=== PATIENT | female | born 1955 | race Caucasian/White ===

== ENCOUNTER → 2017-11-15 14:06 | Outpatient (CLI) | payer OTHER, SELFPAY ==
--- NOTE | 2017-11-15 14:10 | MRI_ITS ---
STUDY: MRI BRAIN WITH AND WITHOUT CONTRAST REASON FOR EXAM: Female, 62 years old. Confusion, dizziness and double vision TECHNIQUE: Standardized multiplanar fat and water weighted pulse sequences were obtained. 6 ml of Gadavist contrast material was administered intravenously for the contrast portion of the examination. COMPARISON: None. FINDINGS: Normal size of the ventricles and extra-axial spaces for the patient's age. There are a limited number of small white matter hyperintensities, distributed throughout the deep white matter tracts of the cerebral hemispheres, consistent with mild chronic white matter ischemic changes. There is no evidence for recent intracranial ischemia or other cause of cytotoxic edema on diffusion weighted imaging (DWI). Normal bilateral basal ganglia. Normal thalami. There is no extra-axial fluid accumulation. Normal flow voids within the major intracranial circulation suggesting patency by spin echo criteria. Normal venous enhancement. There is no enhancing intra-axial or extra-axial abnormality. Normal sella turcica, pituitary gland, infundibular stalk, optic chiasm and hypothalamus. Normal tectal plate and pineal gland. Normal midbrain, teja and medulla. Normal cerebellum. Normal basal cisterns. Normal bilateral temporal bones. Normal bilateral internal auditory canals. No demonstrated orbital abnormality, within the constraints of a routine brain study. Normal visualized paranasal sinuses. Normal calvarium and skull base. Normal visualized soft tissue structures. Normal visualized upper cervical spine. MRI/Brain W/WO Contrast IMPRESSION: Normal unenhanced and enhanced MRI of the brain. Electronically Signed: Duglas Alexandre MD at 21:29 EDT , Service support ,
[2017-11-15 15:01] LABS: CREATININE FINGERSTICK 0.7 mg/dL (0.55-1.02); EGFR FINGERSTICK > 60.0000 mL/min (>60)
== END ==
PROVIDERS: Family Provider Internal Medicine; PCP Internal Medicine; Visit Provider Internal Medicine
DX: R41.0 Disorientation, unspecified (principal)
CPT/HCPCS: 70553; A9585

== ENCOUNTER → 2017-11-20 16:00 | Outpatient (CLI) | payer OTHER, SELFPAY ==
--- NOTE | 2017-11-20 16:03 | CT_ITS ---
STUDY: CT ABDOMEN AND PELVIS WITH CONTRAST REASON FOR EXAM: Female, 62 years old. Right lower quadrant pain. RADIATION DOSAGE (If Supplied By Facility): CTDIvol = ( 11.60 ) mGy, DLP = ( 495.26 ) mGycm TECHNIQUE: Transaxial images were obtained from the dome of the diaphragm to the symphysis pubis without oral contrast. 75 ml of Isovue 300 contrast was administered. Sagittal and coronal images were reconstructed. Individualized dose optimization techniques were used for this CT. COMPARISON: November 08, 2016 FINDINGS: The visualized lung bases are unremarkable. Pacemaker wires in the heart. There is stable 1.5 cm peripherally enhancing mass in the right lobe the liver suggesting hemangioma. Normal gallbladder and extrahepatic biliary system. Normal spleen. Normal pancreas. Normal bilateral adrenal glands. Normal right kidney. Normal left kidney. Normal visualized stomach. Normal small intestine. Normal colon. There is moderately abundant stool There are surgical clips in the region of the appendix consistent with a prior appendectomy. Normal abdominal aorta. Normal inferior vena cava. Normal retroperitoneum. Normal urinary bladder. Uterus is lobular with suggestion of fibroids. There is no free fluid in the abdomen or pelvis. There are postoperative changes of the abdominal wall. Degenerative changes of the spine. CT/Abdomen/Pelvis WITH Contrast IMPRESSION: No obstruction. Moderately abundant stool. Fibroid uterus. No hydronephrosis. Electronically Signed: Nils Bender MD at 17:50 EDT , Service support ,
[2017-11-20 16:36] LABS: CREATININE FINGERSTICK < 0.6 mg/dL (0.55-1.02)
== END ==
PROVIDERS: Family Provider Internal Medicine; PCP Internal Medicine; Visit Provider Internal Medicine
DX: R10.31 Right lower quadrant pain (principal)
CPT/HCPCS: 74177; Q9967

== ENCOUNTER → 2017-11-25 08:00 | Outpatient (CLI) | payer OTHER, SELFPAY ==
--- NOTE | 2017-11-25 08:00 | CYST_PTH ---
PATIENT: LUIS BHAGAT LOC: [facility] U#:[id number] AGE/SX: 70/F ROOM: RE11/25/[address]: Dr. Sebastien Anders MD : [id number] BED: DIS: SPEC #: [id number] RECD: 11/25/17 11:45 STATUS: MANDI NATTY #: [id number] LAURENT: 11/25/17 08:[address]: Sebastien Anders DEPT: SURGICAL PATHOLOGY RECD BY: Arthur Lentz ENTERED: 11/27/17 09:02 SP TYPE: Cyst OTHR DR: Dr. Zayda Robles, DO Tissues: CYST Procedures: Surgery Specimen Level III HEADER OPERATION: Excision of right shoulder cyst PRE-OP DIAGNOSIS: Subcutaneous mass, L98.9 TISSUE SUBMITTED: Right shoulder subcutaneous mass MICROSCOPIC DIAGNOSIS Right shoulder subcutaneous mass, excision: Trichilemmal cyst with focal calcifications. SJ:felix 8/7/18 MICROSCOPIC DESCRIPTION Slides are reviewed. GROSS DESCRIPTION Received in fixative is one container labeled with the patient's name and designated right shoulder cyst. The specimen consists of an ovoid fragment of swann-white soft tissue measuring 1.6 x 1.2 x 1 cm. The specimen is sectioned to reveal a yellow cut surface that is somewhat granular. The specimen is sectioned and totally submitted in one cassette. / AM:felix 11/27/17 TC:5 CPT: 02401
== END ==
PROVIDERS: Family Provider Internal Medicine; PCP Internal Medicine; Visit Provider Surgery
DX: L72.12 Trichodermal cyst (principal)
CPT/HCPCS: 88304

== ENCOUNTER → 2018-07-26 14:27 | Outpatient (CLI) | payer OTHER, SELFPAY ==
--- NOTE | 2018-07-26 14:32 | BI_ITS ---
MAMMOGRAPHY - BILATERAL SCREENING REASON FOR EXAM: Female, 63 years old. Routine annual screening examination. PERTINENT HISTORY: Non-contributory. TECHNIQUE: Digital bilateral breast xiomy (3D mammographic acquisition) in the CC and MLO projections. 2-D mediolateral oblique (MLO) and craniocaudad (CC) views of both breasts were obtained. CAD: Full Field Digital Mammography with Computer Added Detection was performed. COMPARISON: Comparison is made with prior study dated November 03, 2015 and December 03, 2008. FINDINGS: Breast Composition: The breasts are heterogeneously dense, which may obscure small masses. There are no dominant masses or suspicious calcifications. No other significant abnormalities are identified. There has been no significant change since the prior study. BI/SCREENING MAMM (CAD), BILAT IMPRESSION: Stable bilateral screening mammogram. Yearly follow-up mammogram recommended. (A) ASSESSMENT CATEGORY: BIRADS Category 1: Negative. A letter regarding these results will be sent to the patient by the facility within 30 days. Approximately 10% of breast cancers are not detected by mammography. A normal mammogram should not delay biopsy of a clinically suspicious abnormality. [id number] Electronically Signed: Junior Egan, at 15:56 EDT , Service support ,
--- NOTE | 2018-07-26 14:34 | BD_ITS ---
STUDY: DUAL ENERGY X-RAY ABSORPTIOMETRY / DXA REASON FOR EXAM: Female, 63 years old. The patient is postmenopausal. Loss of height. TECHNIQUE: Bone Mineral Density (BMD) measurements of lumbar spine and bilateral hips were obtained. COMPARISON: Comparison is made with prior study dated November 03, 2015. FINDINGS: Lumbar Spine (L1-L4): g/cm2 (0.918) / T-score (-2.4) / Z-score (-1.0) Findings are suggestive of osteopenia with a high fracture risk. Left Femur Total: g/cm2 (0.826) / T-score (-1.4) / Z-score (-0.4) Left Femoral Neck: g/cm2 (0.871) / T-score (-1.2) / Z-score (0.1) Right Femur Total: g/cm2 (0.848) / T-score (-1.3) / Z-score (-0.2) Right Femoral Neck: g/cm2 (0.901) / T-score (-1.0) / Z-score (0.4) The T-Scores on the most recent prior examination were: Lumbar Spine (L1-L4): There has been worsening of bone density since the previous examination. Left Femur Total: which represents a worsening of 0.2%. Right Femur Total: which represents a worsening of 2.9%. BD/Dexa Bone Density Study IMPRESSION: The patient is considered osteopenic as outlined below according to World Larry Organization (WHO) criteria with a high fracture risk. There has been worsening of bone density since the previous examination. Reference Information: The T-score is the number of standard deviations above or below the standard which is normal for young adults at their peak bone mineral density. The World Health Organization (WHO) interprets the T-scores as follows: Above -1 Normal bone density Between -1 and -2.5 Osteopenia Equal to / or below -2.5 Osteoporosis As a practical clinical guideline, osteopenia may be graded as follows: Mild -1 through -1.5 Moderate -1.6 through -2.0 Severe -2.1 through -2.4 The Z-score is the number of standard deviations above or below age-matched controls. A Z-score of less than -1.5 would be considered abnormal. References: 1. NIH Osteoporosis and Related Bone Diseases http://www.osteo.org 2. International Society for Clinical Densitometry http://www.iscd.org 3. National Osteoporosis Foundation http://www.nof.org Electronically Signed: Junior Egan, at 15:02 EDT , Service support ,
== END ==
PROVIDERS: Family Provider Internal Medicine; PCP Internal Medicine; Referring Provider Internal Medicine; Visit Provider Internal Medicine
DX: Z12.31 Encounter for screening mammogram for malignant neoplasm of breast (principal); Z78.0 Asymptomatic menopausal state
CPT/HCPCS: 77063; 77067; 77080

== ENCOUNTER → 2018-10-24 09:26 | Outpatient (CLI) | payer OTHER, SELFPAY ==
--- NOTE | 2018-10-24 09:29 | CT_ITS ---
STUDY: CT ABDOMEN AND PELVIS WITHOUT CONTRAST REASON FOR EXAM: Female, 63 years old. Right flank pain. RADIATION DOSAGE (If Supplied By Facility): CTDIvol = ( 6.43 ) mGy, DLP = ( 324.56 ) mGycm TECHNIQUE: Transaxial images were obtained from the dome of the diaphragm to the symphysis pubis without oral contrast, and without intravenous contrast. Sagittal and coronal images were reconstructed. Individualized dose optimization techniques were used for this CT. COMPARISON: Comparison is made with prior study dated November 20, 2017. FINDINGS: Minimal degree of increased markings at the right lung base suggestive of atelectasis. There is evidence of prior aortic valve replacement. A dual chamber pacemaker is seen. Normal liver. Normal gallbladder and extrahepatic biliary system. Normal spleen. Normal pancreas. Normal bilateral adrenal glands. Normal right kidney. Normal left kidney. Mild fullness of the renal pelvis bilaterally. Normal visualized stomach. Normal small intestine. Normal colon. There are surgical clips in the region of the appendix consistent with a prior appendectomy. Normal abdominal aorta. Normal inferior vena cava. Normal retroperitoneum. Normal urinary bladder. Surgical clips are seen in the right groin. There are mild degenerative changes of the visualized lumbar spine. CT/Abdomen/Pelvis without Cont IMPRESSION: Stable examination. Status post appendectomy. Electronically Signed: Junior Egan, at 10:21 EDT , Service support ,
== END ==
PROVIDERS: Family Provider Internal Medicine; PCP Internal Medicine; Referring Provider Internal Medicine; Visit Provider Internal Medicine
DX: R10.9 Unspecified abdominal pain (principal)
CPT/HCPCS: 74176

== ENCOUNTER → 2018-10-26 10:35 | Outpatient (CLI) | payer OTHER, SELFPAY ==
--- NOTE | 2018-10-26 10:52 | RAD_ITS ---
STUDY: X-RAY - LUMBAR SPINE REASON FOR EXAM: Female, 63 years old. 4 day history of back pain. TECHNIQUE: 5 view(s) of the lumbar spine were obtained including oblique views. COMPARISON: None FINDINGS: Normal lumbar lordosis. There is no substantial scoliosis. There is a normal alignment of the vertebrae. There is multilevel endplate spondylosis of the lumbar vertebrae. There is multi-level degenerative disc disease with multi-level disc space narrowing. The soft tissue structures are unremarkable. RAD/L/S Spine Min 4 Views IMPRESSION: Degenerative changes of the spine, as detailed above. Electronically Signed: Junior Egan, at 11:46 EDT , Service support ,
--- NOTE | 2018-10-26 10:52 | RAD_ITS ---
STUDY: X-RAY - PELVIS AND RIGHT HIP REASON FOR EXAM: Female, 63 years old. 4 day history of low back pain. TECHNIQUE: 3 views of the pelvis and hip. COMPARISON: None. FINDINGS: There is a non-specific bowel gas pattern. Normal visualized soft tissue structures. Normal bilateral iliac wings, sacroiliac joints and visualized sacrum. Normal bilateral superior and inferior pubic rami. Normal pubic symphysis. Normal bilateral ischial tuberosities. Normal visualized femoral head. Normal acetabulum. Normal hip joint. RAD/HIP, UNI W/ Pelvis 2-3 Views IMPRESSION: Normal x-ray examination of the pelvis and hip. Electronically Signed: Junior Egan, at 11:14 EDT , Service support ,
--- NOTE | 2018-10-26 13:36 | RAD_ITS ---
STUDY: X-RAY - THORACIC SPINE REASON FOR EXAM: Female, 63 years old. Back pain. TECHNIQUE: AP and lateral view(s) of the thoracic spine were obtained. COMPARISON: None. FINDINGS: Normal kyphosis of the thoracic spine. There is no substantial scoliosis. There is demineralization of the thoracic spine with endplate spondylosis. There is multilevel disc space narrowing of the thoracic spine. A left-sided dual-chamber pacemaker is seen. Prosthetic valves. The soft tissue structures are unremarkable. RAD/Thoracic Spine 2 Views IMPRESSION: Multilevel disc space narrowing and spondylosis. Electronically Signed: Junior Egan, at 14:30 EDT , Service support ,
== END ==
PROVIDERS: Family Provider Internal Medicine; PCP Internal Medicine; Referring Provider Internal Medicine; Visit Provider Internal Medicine
DX: M54.6 Pain in thoracic spine (principal); M47.819 Spondylosis without myelopathy or radiculopathy, site unspecified
CPT/HCPCS: 72070; 72110; 73502

== ENCOUNTER → 2018-11-05 | Outpatient (CLI) | payer OTHER, SELFPAY ==
--- NOTE | 2018-11-05 09:43 | MRI_ITS ---
STUDY: MRI THORACIC SPINE WITHOUT CONTRAST REASON FOR EXAM: Female, 63 years old. Back pain, numbness TECHNIQUE: Standardized fat and water weighted pulse sequences were obtained in the sagittal and axial planes. COMPARISON: None. FINDINGS: Normal kyphosis of the thoracic spine. There is no substantial scoliosis. T1-2, T2-3, T3-4, T4-5, T5-6, T6-7, T7-8, T8-9, T9-10, T10-11, T11-12: Normal endplates. Normal disc hydration, heights and morphology of the corresponding intervertebral discs. Normal central canal and intervertebral neural foramina at the corresponding levels. Normal visualized thoracic cord. Normal conus medullaris that terminates at the . The soft tissue structures are unremarkable. MRI/Spine Thoracic (Routine) IMPRESSION: Normal unenhanced MRI examination of the thoracic spine. Electronically Signed: Glen Foster MD at 17:14 EDT Tel , Service support ,
--- NOTE | 2018-11-05 13:00 | MRI_ITS ---
STUDY: MRI LUMBAR SPINE WITHOUT CONTRAST REASON FOR EXAM: Female, 63 years old. Back pain TECHNIQUE: Standardized fat and water weighted pulse sequences were obtained in the sagittal and axial planes. COMPARISON: None FINDINGS: Lumbar spine is intact and aligned. Marrow is normal with scattered hemangiomata and mild osteopenic conversion change. L5-S1 has a small focal central disc protrusion without neural compression. Paraspinous soft tissues are intact. SI joints are not imaged sufficiently for assessment. Conus medullaris terminates at L1-L2 with normal cauda equina. Spinal canal is widely patent. There is no moderate or severe foraminal stenosis. MRI/Spine Lumbar (Routine) IMPRESSION: 1. Widely patent canal, no neural compression. 2. Age-related changes. Electronically Signed: Jacky Jacobs, at 17:52 EDT Tel , Service support ,
== END | disposition home or self-care (01) ==
PROVIDERS: Family Provider Internal Medicine; PCP Internal Medicine; Referring Provider Internal Medicine; Visit Provider Internal Medicine
DX: M54.6 Pain in thoracic spine (principal)
CPT/HCPCS: 72146; 72148

== ENCOUNTER → 2018-11-09 | Outpatient (CLI) | payer OTHER, SELFPAY ==
--- NOTE | 2018-11-09 16:20 | US_ITS ---
STUDY: ULTRASOUND OF THE FEMALE PELVIS - COMPLETE REASON FOR EXAM: Female, 63 years old. Pain TECHNIQUE: Transabdominal and transvaginal ultrasound images were obtained of the pelvis. TECHNICAL QUALITY: Limited. COMPARISON: None. FINDINGS: The uterus measures 7 x 4.8 x 3.9 cm. Normal uterine cervix. The endometrium measures 2 mm in thickness. Mild fluid is present within the endometrial cavity. There is a 2 cm fibroid and a 1.7 cm fibroid. The right ovary is not visualized. The left ovary is not visualized. There is no fluid in the cul-de-sac. US/Transvaginal Non- IMPRESSION: No acute pelvic pathology identified. Uterine fibroids. Mild fluid within the endometrial cavity. Electronically Signed: Erwni Fowler, at 20:43 EDT Tel , Service support ,
== END | disposition home or self-care (01) ==
LOC: US 16:16
PROVIDERS: Family Provider Internal Medicine; PCP Internal Medicine; Referring Provider Internal Medicine; Visit Provider Internal Medicine
DX: R10.31 Right lower quadrant pain (principal)
CPT/HCPCS: 76830

== ENCOUNTER → 2018-11-22 | Outpatient (CLI) | payer OTHER, SELFPAY ==
[2018-11-22 14:01] VITALS: BMI 22.7
[2018-11-27 16:30] LABS: HPV APTIMA, High Risk Negative (Negative)
== END | disposition home or self-care (01) ==
PROVIDERS: Family Provider Internal Medicine; PCP Internal Medicine; Referring Provider Internal Medicine; Visit Provider Internal Medicine
DX: Z12.4 Encounter for screening for malignant neoplasm of cervix (principal)
CPT/HCPCS: 87624; 88175; G0145

== ENCOUNTER → 2020-07-30 14:07 | Outpatient (CLI) | payer OTHER, SELFPAY ==
[2018-11-22 14:01] VITALS: BMI 22.7
--- NOTE | 2020-07-30 14:12 | BD_ITS ---
STUDY: DUAL ENERGY X-RAY ABSORPTIOMETRY / DXA REASON FOR EXAM: Female, 65 years old. [id number]. The patient is postmenopausal. TECHNIQUE: Bone Mineral Density (BMD) measurements of lumbar spine and bilateral hips were obtained. COMPARISON: Comparison is made with prior study dated 11/03/2015. FINDINGS: Lumbar Spine (L1-L4): g/cm2 (0.969) / T-score (-1.8) / Z-score (-0.2) Findings are suggestive of osteopenia with a moderate fracture risk. Left Femur Total: g/cm2 (0.772) / T-score (-1.9) / Z-score (-0.7) Left Femoral Neck: g/cm2 (0.825) / T-score (-1.5) / Z-score (-0.1) Right Femur Total: g/cm2 (0.795) / T-score (-1.7) / Z-score (-0.5) Right Femoral Neck: g/cm2 (0.840) / T-score (-1.4) / Z-score (0.0) The T-Scores on the most recent prior examination were: Lumbar Spine (L1-L4): There has been worsening of bone density since the previous examination. Left Femur Total: which represents a worsening of 6.5%. Right Femur Total: which represents a worsening of 6.3%. BD/Dexa Bone Density Study IMPRESSION: The patient is considered osteopenic as outlined below according to World Larry Organization (WHO) criteria with a moderate fracture risk. There has been worsening of bone density since the previous examination. Reference Information: The T-score is the number of standard deviations above or below the standard which is normal for young adults at their peak bone mineral density. The World Health Organization (WHO) interprets the T-scores as follows: Above -1 Normal bone density Between -1 and -2.5 Osteopenia Equal to / or below -2.5 Osteoporosis As a practical clinical guideline, osteopenia may be graded as follows: Mild -1 through -1.5 Moderate -1.6 through -2.0 Severe -2.1 through -2.4 The Z-score is the number of standard deviations above or below age-matched controls. A Z-score of less than -1.5 would be considered abnormal. References: 1. NIH Osteoporosis and Related Bone Diseases www osteo.org 2. International Society for Clinical Densitometry www iscd.org 3. National Osteoporosis Foundation www nof.org Electronically Signed: Junior Egan MD at 12:26 EDT , Service support ,
== END ==
PROVIDERS: PCP Internal Medicine; Referring Provider Internal Medicine; Visit Provider Internal Medicine
DX: Z78.0 Asymptomatic menopausal state (principal)
CPT/HCPCS: 77080

== ENCOUNTER → 2020-12-22 10:45 | Outpatient (CLI) | payer OTHER, SELFPAY ==
[2018-11-22 14:01] VITALS: BMI 22.7
--- NOTE | 2020-12-22 10:47 | BI_ITS ---
MAMMOGRAPHY - BILATERAL SCREENING 3-D TOMOSYNTHESIS REASON FOR EXAM: Female, 65 years old. SCREENING PERTINENT HISTORY: No significant family history. TECHNIQUE: 2-D mammograms and 3-D Tomosynthesis of the breast (s) were performed. CAD was performed. COMPARISON: 07/26/2018 FINDINGS: The breast composition is heterogeneously dense that can obscure small breast masses. Scattered benign calcifications are seen. No dense spiculated masses or suspicious microcalcifications are identified. No architectural distortion is identified. There is no skin thickening or retraction. There has been no significant change since the prior study. BI/SCRN MAMM (CAD)W/ANGELICA BILAT IMPRESSION: No mammographic signs of malignancy. Routine yearly mammograms recommended. ASSESSMENT CATEGORY: BIRADS Category 1: Negative. A letter regarding these results will be sent to the patient by the facility within 30 days. FOLLOW UP RECOMMENDATION: Yearly follow up mammogram recommended. (A) Approximately 10% of breast cancers are not detected by mammography. A normal mammogram should not delay biopsy of a clinically suspicious abnormality. Electronically Signed: Glen Foster MD at 17:10 EDT Tel , Service support ,
== END ==
PROVIDERS: PCP Internal Medicine; Referring Provider Internal Medicine; Visit Provider Internal Medicine
DX: Z12.31 Encounter for screening mammogram for malignant neoplasm of breast (principal)
CPT/HCPCS: 77063; 77067

== ENCOUNTER → 2021-12-23 | Outpatient (CLI) | payer BC, SELFPAY ==
--- NOTE | 2021-12-23 12:05 | BI_ITS ---
MAMMOGRAPHY - BILATERAL SCREENING REASON FOR EXAM: Female, 66 years old. Routine annual screening examination. PERTINENT HISTORY: Non-contributory. TECHNIQUE: Digital bilateral breast angelica (3D mammographic acquisition) in the CC and MLO projections. 2-D mediolateral oblique (MLO) and craniocaudad (CC) views of both breasts were obtained. CAD: Full Field Digital Mammography with Computer Added Detection was performed. COMPARISON: Comparison is made with prior study dated 12/22/2020 and 07/26/2018. FINDINGS: Breast Composition: The breasts are heterogeneously dense, which may obscure small masses. There are no dominant masses or suspicious calcifications. No other significant abnormalities are identified. There has been no significant change since the prior study. BI/SCRN MAMM (CAD)W/ANGELICA BILAT IMPRESSION: Stable bilateral screening mammogram. Yearly follow-up mammogram recommended. (A) ASSESSMENT CATEGORY: BIRADS Category 1: Negative. A letter regarding these results will be sent to the patient by the facility within 30 days. Approximately 10% of breast cancers are not detected by mammography. A normal mammogram should not delay biopsy of a clinically suspicious abnormality. [id number] Electronically Signed: Junior Egan MD at 12:48 EDT ,
== END | disposition home or self-care (01) ==
LOC: OPBI 12:04
PROVIDERS: PCP Student in an Organized Health Care Education/Training Program; Referring Provider Student in an Organized Health Care Education/Training Program; Visit Provider Student in an Organized Health Care Education/Training Program
DX: Z12.31 Encounter for screening mammogram for malignant neoplasm of breast (principal)
CPT/HCPCS: 77063; 77067

== ENCOUNTER 2022-10-14 10:45 | Emergency (ER) | payer BC, SELFPAY ==
[2022-10-14 10:46] VITALS: TEMP 36.9; BMI 23.3
[2022-10-14 10:51] VITALS: BP 153/83; PULSE 76; RESP 18; O2SAT 100
--- NOTE | 2022-10-14 11:12 | EDS_ITS ---
HPI <CIRO Joya - Last Filed: 10/14/22 15:24> History of Present Illness Chief Complaint: Chest Pain Narrative Narrative: Patient presenting to ED with left-sided constant chest pain that she describes as nonradiating, squeezing, and aching that started at 6:30 AM this morning. She went on a long walk this morning, around 2 miles that did not seem to worsen the pain. She reports that she walks daily and has a history of costochondritis. She also has a history of aortic valve replacement and cardiac pacemaker placement. Her last stress test was in 2019. She reports feeling slightly short of breath. She denies any fever, chills, abdominal pain, nausea, vomiting. She denies any history of blood clots, recent surgery/procedures, recent travel, recent immobilization. PFSH <CIRO Joya - Last Filed: 10/14/22 15:24> PFSH Medical History Aortic stenosis Aortic valve disease Appendicitis Atypical nevus Cyst Hemorrhoids Hyperlipemia Lymphadenopathy Osteopenia Pacemaker Papillary fibroelastoma Psoriasis Syncope Home Medications NK 10/14/22 [History Last Taken Unknown] Allergy/AdvReac Type Severity Reaction Status Date / Time No Known Allergies Allergy Verified 10/14/22 10:46 Family History Grandmother Paget's disease Heart disease Surgical History Hx of aortic valve repair Hx of appendectomy Status post cardiac pacemaker procedure Social History Smoking Status: Never smoker second hand exposure: No alcohol intake: never substance use type: does not use caffeine: No what type of physical activity do you participate in: walking and running frequency: 5-6 times per week seatbelt use: always do you feel safe at home: Yes additional social history: ROS <CIRO Joya - Last Filed: 10/14/22 15:24> ROS ED Constitutional Constitutional ED: Denies chills or fever(s) Cardiovascular Cardiovascular: Reports chest pain; Denies palpitations Respiratory/Chest Respiratory/Chest: Reports dyspnea on exertion; Denies cough or dyspnea Gastrointestinal Gastrointestinal: Denies abdominal pain, nausea or vomiting Musculoskeletal Musculoskeletal: Denies arthralgias or myalgias Integumentary Denies rash Neurologic Neurologic: Denies paresthesias or weakness EXAM <CIRO Joya - Last Filed: 10/14/22 15:24> Physical Exam Const Vital Signs: 10/14/22 10:46 10/14/22 10:51 10/14/22 12:00 Temperature 98.4 F Temperature Source Temporal Pulse Rate 76 63 Respiratory Rate 18 18 Blood Pressure 153/83 H 148/82 H Blood Pressure Mean 106 104 Pulse Ox 100 99 Oxygen Delivery Method Room Air Room Air Positive well nourished, well developed and no apparent distress General Appearance ED: well developed HEENT Reports normocephalic and head/scalp atraumatic Mouth ED: Yes moist mucous membranes normal Eyes PERRL and EOMs intact bilaterally Neck full ROM and supple Chest Wall inspection of chest normal Chest Narrative: Left-sided chest tenderness to palpation. Resp normal respiratory effort and clear to auscultation bilaterally Cardio regular rate and regular rhythm GI soft to palpation, non-tender, non-distended and no masses Back/Spine normal ROM and normal to inspection Extremity normal to inspection and full ROM Neuro oriented x3, CN's II-XII intact bilaterally, moves all extremities, no focal motor deficits and no sensory deficits noted Sensorium / Orientation: awake and alert Motor Exam: strength 5/5 throughout Psych mental status grossly normal and thought process normal Skin no rashes or lesions noted and no wounds <Jb Booth MD - Last Filed: 10/14/22 15:50> Physical Exam Const Vital Signs: 10/14/22 10:46 10/14/22 10:51 10/14/22 12:00 Temperature 98.4 F Temperature Source Temporal Pulse Rate 76 63 Respiratory Rate 18 18 Blood Pressure 153/83 H 148/82 H Blood Pressure Mean 106 104 Pulse Ox 100 99 Oxygen Delivery Method Room Air Room Air MDM <CIRO Joya - Last Filed: 10/14/22 15:24> [facility] MDM Narrative Medical decision making narrative: Patient presenting with left-sided chest pain that she has had since 6:30 AM this morning that has been constant and achy. She was able to walk this morning around 2 miles and that did not seem to worsen her pain or make her short of breath. She reports she felt slightly short of breath while taking a shower and getting ready to come here after her walk but is not short of breath now. She has a history of costochondritis and left-sided chest tenderness on examination that did make her jump in the examination bed from the pain. Vitals are unremarkable, she is slightly hypertensive. She is well-appearing and in no acute distress. She does not appear to be short of breath and O2 saturation is 100% on room air. Labs and EKG will be obtained to rule out leukocytosis, anemia, electrolyte abnormality, ACS. Chest x-ray will be obtained to rule out infiltrate, pneumothorax, and other etiology and is negative for any acute process. Troponin is WNL. At this time, patient has chest pain of uncertain etiology and chest wall pain. I have encouraged her to follow-up with her PCP and she will be discharged home in stable condition. She is comfortable with plan. She has been given return instructions. Lab Data Attestation: I reviewed the patient's lab results. Lab results narrative: And gap 3, BUN 21, troponin 5 Labs: Laboratory Results - last 24 hr 10/14/22 10/14/22 11:12 11:12 WBC 8.9 RBC 4.38 Hgb 13.7 Hct 42.8 MCV 97.7 MCH 31.3 MCHC 32.0 RDW Std Deviation 47.4 H RDW Coeff of Kim 13.2 Plt Count 187 MPV 10.0 Immature Gran % (Auto) 0.300 Neut % (Auto) 76.9 H Lymph % (Auto) 14.6 L [place] % (Auto) 6.7 Eos % (Auto) 1.2 Baso % (Auto) 0.3 Absolute Neuts (auto) 6.9 Absolute Lymphs (auto) 1.30 Nucleated RBC % 0 Sodium 142 Potassium 3.6 Chloride 110 H Carbon Dioxide 29.0 Anion Gap 3 L BUN 21 H Creatinine 0.87 Estim Creat Clear Calc 59.55 Est GFR (MDRD) Af Amer 84 Est GFR (MDRD) Non-Af 69 BUN/Creatinine Ratio 24.1 H Glucose 110 H Calcium 9.3 Troponin I High Sens 5 Radiography X-Ray: Read by ED Physician and Read by Radiologist Diagnostic Testing: Clinical Impression(s) from Imaging Studies Chest X-Ray 10/14/22 11:40 IMPRESSION: No acute pulmonary process Electronically Signed: Yann Guerrero MD at 13:13 EDT , EKG Initial EKG: Comments: 75 bpm, normal sinus rhythm, left axis deviation, no ST elevation, reviewed and interpreted by attending ED physician <Jb Booth MD - Last Filed: 10/14/22 15:50> [facility] MDM Narrative Medical decision making narrative: Patient presenting with left-sided chest pain that she has had since 6:30 AM this morning that has been constant and achy. She was able to walk this morning around 2 miles and that did not seem to worsen her pain or make her short of breath. She reports she felt slightly short of breath while taking a shower and getting ready to come here after her walk but is not short of breath now. She has a history of costochondritis and left-sided chest tenderness on examination that did make her jump in the examination bed from the pain. Vitals are unremarkable, she is slightly hypertensive. She is well-appearing and in no acute distress. She does not appear to be short of breath and O2 saturation is 100% on room air. Labs and EKG will be obtained to rule out leukocytosis, anemia, electrolyte abnormality, ACS. Chest x-ray will be obtained to rule out infiltrate, pneumothorax, and other etiology and is negative for any acute process. Troponin is WNL. At this time, patient has chest pain of uncertain etiology and chest wall pain. I have encouraged her to follow-up with her PCP and she will be discharged home in stable condition. She is comfortable with plan. She has been given return instructions. Dr. Booth: I have personally performed a face to face assessment of the patient and have reviewed the REJI Note. I performed a substantive portion of the visit including all aspects of the following. My pena findings include: History is left-sided chest pain Exam is afebrile. Vital signs noted. Regular rate and rhythm. Lungs clear to auscultation bilaterally. No crepitus on palpation. Medical Decision Making check EKG. Check labs. Check chest x-ray. Reassurance. Chest x-ray interpreted by myself independently shows no evidence of acute process, no pneumothorax, no infiltrate. I do not feel antibiotics are indicated. I do not feel she requires observation. Discharge. Other additions or changes: [None] History & Record Review Discussion w/independent historian: Patient and Significant other Additional record(s) reviewed:: Prior ED visit Lab Data Labs: Laboratory Results - last 24 hr 10/14/22 10/14/22 11:12 11:12 WBC 8.9 RBC 4.38 Hgb 13.7 Hct 42.8 MCV 97.7 MCH 31.3 MCHC 32.0 RDW Std Deviation 47.4 H RDW Coeff of Kim 13.2 Plt Count 187 MPV 10.0 Immature Gran % (Auto) 0.300 Neut % (Auto) 76.9 H Lymph % (Auto) 14.6 L [place] % (Auto) 6.7 Eos % (Auto) 1.2 Baso % (Auto) 0.3 Absolute Neuts (auto) 6.9 Absolute Lymphs (auto) 1.30 Nucleated RBC % 0 Sodium 142 Potassium 3.6 Chloride 110 H Carbon Dioxide 29.0 Anion Gap 3 L BUN 21 H Creatinine 0.87 Estim Creat Clear Calc 59.55 Est GFR (MDRD) Af Amer 84 Est GFR (MDRD) Non-Af 69 BUN/Creatinine Ratio 24.1 H Glucose 110 H Calcium 9.3 Troponin I High Sens 5 Radiography Diagnostic Testing: Clinical Impression(s) from Imaging Studies Chest X-Ray 10/14/22 11:40 IMPRESSION: No acute pulmonary process Electronically Signed: Yann Guerrero MD at 13:13 EDT Reading Location ID and State: [address] [place] [address] , Service support , Discharge Plan Triage Chief Complaint: Chest Pain ED Midlevel Provider: Kamila Medina ED Provider: Jb Booth Dx/Rx/DC Orders Clinical Impression: Chest pain, Costochondritis Instructions: ED Chest Pain, Uncertain Cause, ED Chest Wall Pain, Costochondritis Prescriptions: No Action NK Primary Care Provider: Frantz Hernández Referrals: Frantz Hernández DO [Primary Care Provider] - 3-5 Days Activity Restrictions/Additional Instructions: Please follow-up with your PCP and return for any worsening of symptoms. Disposition Disposition: Home, Self Care Discharge Date/Time: 10/14/22 13:34
[2022-10-14 11:22] LABS: Absolute Neutrophil Count 6.9 X10^3/uL (2.0-7.7); Basophil# 0.03 X10^3/uL; Basophil% 0.3 % (0-1); Eosinophil# 0.11 X10^3/uL; Eosinophils% 1.2 % (0-5); Hematocrit 42.8 % (37-47); Hemoglobin 13.7 g/dL (12.0-15.0); Lymphocyte % 14.6 % (19-41); Mean Corpuscular Hgb 31.3 pg (27.0-32.0); Mean Corpuscular Volume 97.7 fL (81-99); Monocyte% 6.7 % (0-10); NRBC Flagged by Analyzer 0 % (0-5); Neutrophil # 6.86 X10^3/uL (2.7-7.7); Neutrophil % 76.9 % (47-70); Platelet Count 187 K/mm3 (150-450); RBC Distribution Width CV 13.2 % (11.6-14.6); RBC Distribution Width SD 47.4 fl (35.1-43.9); Red Blood Count 4.38 M/mm3 (4.2-5.4); White Blood Count 8.9 K/mm3 (4.4-11.0)
[2022-10-14 11:40] LABS: Anion Gap 3 (5-15); BUN 21 mg/dL (7-18); BUN/Creat Ratio 24.1 RATIO (10-20); Calcium,Total 9.3 mg/dL (8.5-10.1); Chloride 110 mmol/L (98-107); Creatinine, Serum 0.87 mg/dL (0.55-1.02); EST Glomerular Filtration Rate 69 mL/min (>60); Est Glom Filt Rate - Afr Amer 84 mL/min (>60); Estimated Creatinine Clearance 59.55 ml/min; Glucose 110 mg/dL (74-106); Potassium 3.6 mmol/L (3.5-5.1); Sodium Level 142 mmol/L (136-145); Troponin-I HS 5 pg/mL (3.0-54.0)
--- NOTE | 2022-10-14 11:40 | RAD_ITS ---
STUDY: X-RAY CHEST REASON FOR EXAM: Female, 67 years old. Atypical chest pain TECHNIQUE: Single AP portable view of the chest. COMPARISON: 08/30/2021 FINDINGS: EKG leads overlie the chest. Stable appearance of a left subclavian pacemaker The lungs are clear and expanded. There is no demonstrated pleural abnormality. Normal size heart. Normal mediastinum and juan jose. Normal visualized pulmonary arteries. Normal visualized aortic arch and descending thoracic aorta. Surgical hardware in the thoracic spine pre of complication Normal visualized ribs, clavicles, and shoulders. There is no demonstrated abnormality of the visualized soft tissue structures of the upper abdomen. RAD/Chest 1 View (Portable) IMPRESSION: No acute pulmonary process Electronically Signed: Yann Guerrero MD at 13:13 EDT ,
[2022-10-14 12:00] VITALS: BP 148/82; PULSE 63; RESP 18; O2SAT 99
== END 2022-10-14 13:34 | disposition home or self-care (01) ==
PROVIDERS: Physician Assistant; Emergency Provider Emergency Medicine; PCP Student in an Organized Health Care Education/Training Program; Visit Provider Emergency Medicine
DX: R07.9 Chest pain, unspecified (principal); M94.0 Chondrocostal junction syndrome [Tietze]; E78.5 Hyperlipidemia, unspecified; Z95.0 Presence of cardiac pacemaker; Z90.49 Acquired absence of other specified parts of digestive tract; Z95.2 Presence of prosthetic heart valve
CPT/HCPCS: 71045; 80048; 84484; 85025; 93005; 99284

== ENCOUNTER → 2022-11-09 | Outpatient (CLI) | payer BC, SELFPAY ==
--- NOTE | 2022-11-09 | ASPS_PTH ---
PATIENT: LUIS BHAGAT [facility] U#:[id number] AGE/SX: 67/F ROOM: RE11/09/[address]: Dr. Antwan Lynch MD : [id number] BED: DIS: 11/09/2022 SPEC #: [id number] RECD: 11/09/22 15:54 STATUS: MANDI RECollette #: [id number] LAURENT: 11/09/22 00:[address]: Antwan Lynch DEPT: CYTOLOGY RECD BY: Mariella Hubbard ENTERED: 11/10/22 09:41 SP TYPE: ASPIRATION OTHR DR: Dr. Frantz Hernández, DO Tissues: A - Thyroid gland, NOS B - Thyroid gland, NOS Procedures: Special Stain Group II Cytology Other HEADER OPERATION: Fine needle aspiration left thyroid PRE-OP DIAGNOSIS: Multinodular goiter TISSUE SUBMITTED: A - Left superior thyroid x4 slides, B - Left inferior thyroid x4 slides DIAGNOSIS CYTOLOGY A. Left superior thyroid, fine needle aspiration (smears): Rare atypical follicular cells of undetermined significance, [place] Category III. Adequate for evaluation. See comment. B. Left inferior thyroid, fine needle aspiration (smears): Consistent with benign follicular/colloid nodule with cystic changes, [place] Category II. Adequate for evaluation. See comment. SJ:rg 11/10/2022 COMMENT A. Per recommendations and a clinician-approved plan (a call was made to the referring doctor about the recommendation), genomic testing (Afirma) has been submitted. Results will be reported as an addendum and faxed to clinician. Correlation with clinical, radiologic findings and appropriate follow up are necessary. The [place] System for thyroid diagnostic categorization was used in the evaluation of this case. Case has been reviewed in consultation with Dr. Hess who concurs with the above diagnosis. IDC:AM CYTOLOGY STUDY Slides are reviewed. CYTOLOGY GROSS A - Received are four smears labeled with the patient's name and designated per the requisition as left superior thyroid. Submitted for staining. B - Received are four smears labeled with the patient's name and designated per the requisition as left inferior thyroid. Submitted for staining. / felix 11/10/2022 TC:5 CPT: 68386 x2 ADDENDUM ADDENDUM ADDENDUM ADDENDUM ADDENDUM ADDENDUM ADDENDUM 12/13/2022 09:13 ADDENDUM 12/13/2022 09:13 ADDENDUM 12/13/2022 09:13 ADDENDUM 12/13/2022 09:13 ADDENDUM 12/13/2022 09:13 AFIRMA RESULTS REPORT RESULTS INTERPRETATION: The result of this 2.9 cm [place] III nodule A is Afirma GSC benign, which suggests a low risk of cancer at approximately 4%. Please see complete report in e-chart or EMR
== END | disposition home or self-care (01) ==
PROVIDERS: PCP Student in an Organized Health Care Education/Training Program; Referring Provider Surgery; Visit Provider Surgery
DX: E04.2 Nontoxic multinodular goiter (principal)
CPT/HCPCS: 88161; 88313

== ENCOUNTER → 2023-02-03 | Outpatient (CLI) | payer MEDICARE, SELFPAY ==
--- NOTE | 2023-02-03 12:07 | BI_ITS ---
MAMMOGRAPHY - BILATERAL SCREENING REASON FOR EXAM: Female, 67 years old. Routine annual screening examination. PERTINENT HISTORY: Non-contributory. TECHNIQUE: Digital bilateral breast angelica (3D mammographic acquisition) in the CC and MLO projections. 2-D mediolateral oblique (MLO) and craniocaudad (CC) views of both breasts were obtained. CAD: Full Field Digital Mammography with Computer Added Detection was performed. COMPARISON: Comparison is made with prior study dated December 23, 2021 and December 22, 2020. FINDINGS: Breast Composition: The breasts are heterogeneously dense, which may obscure small masses. There are no dominant masses or suspicious calcifications. No other significant abnormalities are identified. There has been no significant change since the prior study. BI/SCRN MAMM (CAD)W/ANGELICA BILAT IMPRESSION: Stable bilateral screening mammogram. Yearly follow-up mammogram recommended. (A) ASSESSMENT CATEGORY: BIRADS Category 1: Negative. A letter regarding these results will be sent to the patient by the facility within 30 days. Approximately 10% of breast cancers are not detected by mammography. A normal mammogram should not delay biopsy of a clinically suspicious abnormality. [id number] Electronically Signed: Junior Egan MD at 15:30 EDT ,
== END | disposition home or self-care (01) ==
PROVIDERS: PCP Student in an Organized Health Care Education/Training Program; Referring Provider Nurse Practitioner Women's Health; Visit Provider Nurse Practitioner Women's Health
DX: Z12.31 Encounter for screening mammogram for malignant neoplasm of breast (principal)
CPT/HCPCS: 77063; 77067

== ENCOUNTER 2023-07-31 11:10 | Outpatient (CLI) | payer MEDICARE, SELFPAY ==
[2023-07-31 15:24] LABS: Hematocrit 40.3 % (37-47); Mean Corp Hgb Conc 32.3 g/dL (32-36); Mean Corpuscular Hgb 30.2 pg (27.0-32.0); Mean Corpuscular Volume 93.7 fL (81-99); Mean Platelet Vol. 10.2 fl (6.2-12.0); Platelet Count 185 K/mm3 (150-450); RBC Distribution Width SD 44.4 fl (35.1-43.9); White Blood Count 5.3 K/mm3 (4.4-11.0)
[2023-07-31 15:50] LABS: Anion Gap 7 (5-15); BUN 20 mg/dL (7-18); BUN/Creat Ratio 29.6 RATIO (10-20); Calcium,Total 8.9 mg/dL (8.5-10.1); Chloride 108 mmol/L (98-107); Creatinine, Serum 0.68 mg/dL (0.55-1.02); EST Glomerular Filtration Rate 92 mL/min (>60); Est Glom Filt Rate - Afr Amer 112 mL/min (>60); Ferritin 54 ng/mL (8-252); Glucose 90 mg/dL (74-106); Potassium 3.9 mmol/L (3.5-5.1); Sodium Level 138 mmol/L (136-145); T4 Free Direct 0.97 ng/dL (0.76-1.46); Thyroid Stim Hormone (TSH) 2.35 uIU/mL (0.358-3.74)
[2023-07-31 16:44] LABS: Hepatitis C Antibody Non-Reactive (Nonreactive); Vitamin D,25 Hydroxy 32.4 ng/mL
[2023-08-03 19:07] LABS: Zinc, Plasma or Serum 58 ug/dL (44-115)
== END 2023-07-31 23:59 | disposition home or self-care (01) ==
PROVIDERS: PCP Student in an Organized Health Care Education/Training Program; Referring Provider Physician Assistant; Visit Provider Physician Assistant
DX: L66.8 Other cicatricial alopecia (principal)
CPT/HCPCS: 36415; 80048; 82306; 82728; 84439; 84443; 84630; 85027; 86803

== ENCOUNTER → 2023-09-25 | Outpatient (CLI) | payer MEDICARE, SELFPAY ==
--- NOTE | 2023-09-25 12:45 | US_ITS ---
STUDY: THYROID ULTRASOUND REASON FOR EXAM: Female, 68 years old. thyroid nodule TECHNIQUE: Ultrasound evaluation of the thyroid was performed with real-time and static lambert-scale imaging. COMPARISON: Thyroid ultrasound dated October 18, 2022 FINDINGS: RIGHT LOBE: The right lobe of the thyroid gland measures 4.5 x 1.6 x 1.4 cm, previously measuring 3.76 x 1.07 x 1.96 cm. There is a heterogeneous echotexture. Redemonstration of multiple nodules and cysts and diffuse heterogeneity with a dominant nodule in the upper pole measuring 2.0 x 1.1 x 0.8 cm. LEFT LOBE: The left lobe of the thyroid gland measures 4.3 x 2.4 x 1.5 cm, previously measuring 4.7 x 2.02 x 1.77 cm. There is a heterogeneous echotexture. Redemonstration of multiple nodules and cysts and diffuse heterogeneity with a 2 dominant nodules in the upper mid pole measuring 1.5 and 2.9 cm respectively. ISTHMUS: The isthmus measures 3 mm. US/Thyroid IMPRESSION: 1. Interval enlargement of the right lobe of the thyroid gland compared to the prior study otherwise no significant interval changes. Multinodular goiter 2. TR2: 2 points = not suspicious ACR Thyroid Imaging Reporting and Data System (ACR TI-RADS) Reference: COMPOSITION (choose 1): Cystic or almost completely cystic - 0 points Spongiform- 0 points Mixed cystic and solid - 1 point Solid almost completely solid - 2 points ECHOGENICITY (choose 1): Anechoic space - 0 points Hyperechoic or isoechoic-1 point Hypoechoic-2 points Very hypoechoic-3 points SHAPE (choose 1): : Wider than tall-0 points Taller than wide-3 points MARGINS ( smooth, lobular, ill-defined) ECHOGENIC FOCI (macro or microcalcifications) Scoring and classification TR1: 0 points = benign TR2: 2 points = not suspicious TR3: 3 points = mildly suspicious TR4: 4-6 points = moderately suspicious TR5: ?7 points = highly suspicious Recommendations TR1: no FNA required TR2: no FNA required TR3: ?1.5 cm follow up, ?2.5 cm FNA = follow up: 1, 3 and 5 years TR4: ?1.0 cm follow up, ?1.5 cm FNA = follow up: 1, 2, 3 and 5 years TR5: ?0.5 cm follow up, ?1.0 cm FNA = annual follow up for up to 5 years FNA biopsy is recommended for suspicious lesions (TR3-TR5) with the above size criteria. If there are multiple nodules, the two with the highest ACR TI-RADS scores should be sampled (rather than the two largest), with largest size being used a tie-breaker if there are multiple nodules of the same classification. Electronically Signed: Dajuan Galo MD at 13:18 EDT Reading Location ID and State: [facility] / [place] , Service support ,
== END | disposition home or self-care (01) ==
LOC: US 12:37
PROVIDERS: PCP Student in an Organized Health Care Education/Training Program; Referring Provider Surgery; Visit Provider Surgery
DX: E04.1 Nontoxic single thyroid nodule (principal)
CPT/HCPCS: 76536

== ENCOUNTER 2024-04-15 12:34 | Emergency (ER) | payer MEDICARE, SELFPAY ==
[2024-04-15 12:35] VITALS: BP 169/93; PULSE 73; RESP 16; TEMP 36.4; O2SAT 99; BMI 21.0
[2024-04-15] MEDS: Ketorolac 15 MG/ML Vial IV (13:09)
[2024-04-15] MEDS: Ondansetron 4 MG/2 ML Vial IV (13:09)
[2024-04-15] MEDS: Morphine 4 MG/ML Syringe IV (13:10)
--- NOTE | 2024-04-15 13:20 | RAD_ITS ---
INDICATION: Injury/Pain EXAMINATION/TECHNIQUE: X-RAY - XR Spine Cervical 2 or 3 Views COMPARISON: Thoracic spine MRI dated November 05, 2018 FINDINGS: VERTEBRAE: Preserved vertebral body height. No fracture. There is stable loss of the normal cervical lordosis. There is a stable grade 1 anterior spondylolisthesis of C4 on C5. No significant facet arthropathy. DISCS: There is multilevel degenerative disc disease, most pronounced at C4-C5 and C5-C6. NECK SOFT TISSUES: No prevertebral soft tissue widening. LUNG APICES: Clear. RAD/Cerv Spine 2 or 3 Views IMPRESSION: Multilevel degenerative changes. Electronically Signed: Marie Alvarado MD at 14:14 EST ,
--- NOTE | 2024-04-15 13:39 | EDS_ITS ---
HPI History of Present Illness Chief Complaint: Other, Pain/Inj Detail of Chief Complaint: Atraumatic neck pain. Informant: patient and spouse/S.O. Onset/Context/Timing Onset: Yesterday Context: Sudden Onset Timing: Continuous Quality: Pain and limited range of motion Location: Posterior neck Current Severity: Mild Maximum Severity: Severe Worsened by: Any type of movement or change in position. Relieved by: Took acetaminophen, Flexeril and ibuprofen with no improvement. Associated Symptoms Associated Symptoms: No radicular pain. No weakness in the upper extremity. Narrative Narrative: Patient is a 69-year-old female with history of osteoporosis who presents with atraumatic neck pain. She denies radicular pain. She states she cannot move her neck. The pain started last evening. She denies near fall or fall. She denies direct trauma. She denies any pushing pulling anything that is heavy. She denies doing anything overwork or putting up decorations. She denies prior neck pain. She denies headache. Denies double vision blurred vision loss of vision presently. She does have history of intermittent double vision for the past several years. She denies trouble with speech or swallowing. She denies trouble with grasp or fine coordination. Patient was offered medicine for osteoporosis which she declined. Patient states she does not like to take medication. gave her acetaminophen this morning followed by cyclobenzaprine. Several hours later he gave her 2 ibuprofen tablets. She states the pain has not improved. Prior similar symptoms: No Recent Illness/Hospitalization: No PFSH PFSH Medical History Thyroid nodule Pacemaker Hemorrhoids Cyst Papillary fibroelastoma Psoriasis Hyperlipemia Osteopenia Lymphadenopathy Aortic stenosis Atypical nevus Syncope Aortic valve disease Appendicitis Home Medications ?Medication ?Instructions ?Recorded ?Last Taken ?Type hydrocodone-acetaminophen 5-325mg 1 tab PO Q6H PRN PRN Pain 3 days 04/15/24 Unknown Rx 5mg-325mg #10 TABLETS naproxen 500 mg tablet 500 mg PO BID #10 tabs 04/15/24 Unknown Rx Allergy/AdvReac Type Severity Reaction Status Date / Time No Known Allergies Allergy Verified 04/15/24 12:36 Family History Grandmother Paget's disease Heart disease Surgical History Hx of appendectomy Hx of aortic valve repair Status post cardiac pacemaker procedure Social History Smoking Status: Never smoker second hand exposure: No alcohol intake: never substance use type: does not use caffeine: No what type of physical activity do you participate in: walking and running frequency: 5-6 times per week seatbelt use: always do you feel safe at home: Yes additional social history: ROS ROS ED Constitutional Constitutional ED: Denies chills, fever(s), subjective or sweats Eyes Eyes: Reports diplopia; Denies blurry vision or change in vision ENT ENT ED: Denies ear pain, rhinorrhea or sore throat Cardiovascular Cardiovascular: Denies chest pain or palpitations Respiratory/Chest Respiratory/Chest: Denies cough, dyspnea or dyspnea on exertion Gastrointestinal Gastrointestinal: Denies nausea or vomiting Musculoskeletal Musculoskeletal: Reports neck pain; Denies arthralgias, back pain or myalgias Integumentary Denies rash Neurologic Neurologic: Denies paresthesias or weakness EXAM Physical Exam Const Vital Signs: 04/15/24 12:35 Temperature 97.6 F L Temperature Source Temporal Pulse Rate 73 Respiratory Rate 16 Blood Pressure 169/93 H Blood Pressure Mean 118 Pulse Ox 99 Oxygen Delivery Method Room Air Positive well nourished and well developed Constitutional Narrative: Patient grimaces when she looked up at me as I entered the room. She is reluctant to flex or extend at the neck or rotate to the right or left. General Appearance ED: well developed; Negative for NAD or pallor HEENT Reports moist mucous membranes Negative for trauma or tenderness Eyes PERRL and EOMs intact bilaterally Eyes Narrative: There is no nystagmus. General Eye ED: Negative for pale conjunctiva or scleral icterus Neck no lymphadenopathy and No no JVD Neck Narrative: Patient is reluctant to rotate to the right or left or flex or extend at the neck. There is reproducible pain posteriorly. There are no skin lesions noted. Resp normal respiratory effort and clear to auscultation bilaterally Cardio regular rate and regular rhythm Back/Spine Cervical Spine: Negative for cervical spine tenderness Extremity normal to inspection Extremity Narrative: Radial pulses palpable and symmetric. Neuro oriented x3, CN's II-XII intact bilaterally and no sensory deficits noted Neuro Narrative: Axillary, median, radial and ulnar function intact. Bicep, brachialis and tricep reflexes are 2+ and symmetric. Patellar reflexes 2+ and symmetric. There is no clonus. There is no Babinski sign noted. Sensorium / Orientation: alert Motor Exam: strength 5/5 throughout Psych mental status grossly normal Skin no rashes or lesions noted and no wounds General Skin Exam: Negative for jaundice or pallor MDM MDM MDM Narrative Medical decision making narrative: X-ray was obtained because of history of osteoporosis and significant fractures with minimal trauma. Patient was medicated with ketorolac and morphine. When patient was reassessed and informed of the x-ray results she was now smiling. She was able to move her neck more so. She was discharged to home with prescription for anti-inflammatory and opiate analgesic. Radiography Chest X-Ray - ED: Read by ED Physician (Three-view x-ray of the neck reveals loss of lordotic curvature. There is minimal degenerative changes. There is no prevertebral soft tissue swelling. There is no evidence of subluxation or dislocation. There is no evidence of fracture. Independent reviewed interpreted by me at 1339.) Treatment and Re-Evaluation :: Discharge home with prescription for Naprosyn and hydrocodone with acetaminophen Discharge Plan Triage Chief Complaint: Other, Pain/Inj ED Provider: Kiran Parker Dx/Rx/DC Orders Clinical Impression: Acute torticollis, Hyperlipemia, Osteoporosis, Elevated blood-pressure reading without diagnosis of hypertension Instructions: Torticollis (Wry Neck), ED Hypertension, To Be Confirmed Prescriptions: New hydrocodone-acetaminophen 5-325 mg tablet 1 tab PO Q6H PRN PRN (Reason: Pain) 3 Days Qty: 10 0RF naproxen 500 mg tablet 500 mg PO BID Qty: 10 0RF Primary Care Provider: Frantz Hernández Referrals: Frantz Hernández DO [Primary Care Provider] - 3-5 Days if not improving Activity Restrictions/Additional Instructions: Apply ice to your neck 6-8 times a day for the next 2 to 3 days. Print Language: Occitan Disposition Disposition: Home, Self Care
== END 2024-04-15 14:33 | disposition home or self-care (01) ==
PROVIDERS: Emergency Provider Emergency Medicine; PCP Student in an Organized Health Care Education/Training Program; Visit Provider Emergency Medicine
DX: M43.6 Torticollis (principal); M81.0 Age-related osteoporosis without current pathological fracture; E78.5 Hyperlipidemia, unspecified; R03.0 Elevated blood-pressure reading, without diagnosis of hypertension; Z95.0 Presence of cardiac pacemaker; Z95.2 Presence of prosthetic heart valve
CPT/HCPCS: 72040; 96374; 96375; 99282; A4216; J2405

== ENCOUNTER → 2024-10-08 | Outpatient (CLI) | payer MEDICARE, SELFPAY ==
--- NOTE | 2024-10-08 16:00 | BI_ITS ---
EXAM: SCRN MAMM (CAD)W/ANGELICA BILAT DATE: 10/08/2024 CLINICAL HISTORY: F, Age 69 y/o , SCREENING BREAST CANCER RISK ASSESSMENT: Na TECHNIQUE: Bilateral screening digital breast tomosynthesis with 2D and 3D images. Computer aided detection. COMPARISON: Prior exam(s) were compared FINDINGS: TISSUE DENSITY: The breast tissue is heterogeneously dense, which may obscure small masses. Bilateral Breast Mammographic Findings: No suspicious masses, calcifications or other abnormalities are identified. BI/SCRN MAMM (CAD)W/ANGELICA BILAT IMPRESSION: No mammographic evidence of malignancy either breast OVERALL FINAL ASSESSMENT BI-RADS 1: NEGATIVE. RECOMMEND ANNUAL MAMMOGRAPHIC SCREENING. RECOMMENDATION: Routine annual follow-up in 1 Year A letter with findings and recommendations will be mailed to the patient. Reading Location: [id number]
--- NOTE | 2024-10-08 16:03 | BD_ITS ---
PROCEDURE: DEXA BONE DENSITY STUDY 10/08/2024 REASON FOR EXAM: F, age 69 y/o . Postmenopausal. TECHNIQUE: DEXA BONE DENSITY STUDY COMPARISON: Prior study dated July 30, 2020. FINDINGS: BMD and T-SCORES Lumbar spine: 0.793 g/cm2, T-score -2.3 Levels: L1 through L4 Change from prior: Worsening by 6.9%. Left femoral neck: 0.689 g/cm2, T-score -1.4 Femoral neck comparison data not recommended for monitoring change. Left total hip: 0.751 g/cm2, T-score -1.6 Change from prior: Improvement by 5.5%. Right femoral neck: 0.636 g/cm2, T-score -1.9 Femoral neck comparison data not recommended for monitoring change. Right total hip: 0.740 g/cm2, T-score -1.7 Change from prior: Improvement of 0.7%. The World Health Organization has defined the following categories based on bone density: Normal bone density: T-score equal to or greater than -1.0 Osteopenia: T-score between -1.0 and -2.5 Osteoporosis: T-score equal to or less than -2.5 The patient does meet the pharmacological treatment recommendations for prevention of osteoporosis. BD/Dexa Bone Density Study IMPRESSION: OSTEOPENIA. Recommend follow-up as clinically warranted. Reading Location: [place] [id number]
== END | disposition home or self-care (01) ==
LOC: OPBD 15:58
PROVIDERS: PCP Student in an Organized Health Care Education/Training Program; Referring Provider Student in an Organized Health Care Education/Training Program; Visit Provider Student in an Organized Health Care Education/Training Program
DX: Z12.31 Encounter for screening mammogram for malignant neoplasm of breast (principal); M85.80 Other specified disorders of bone density and structure, unspecified site; Z13.820 Encounter for screening for osteoporosis; Z78.0 Asymptomatic menopausal state
CPT/HCPCS: 77063; 77067; 77080

== ENCOUNTER → 2024-11-19 | Outpatient (CLI) | payer MEDICARE, SELFPAY ==
[2024-11-19 18:28] LABS: CPK Total, Creatine Kinase 117 U/L (24-195)
[2024-11-21 13:08] LABS: Anti-dsDNA Ab 7 IU/mL (0-9)
== END | disposition home or self-care (01) ==
LOC: MTLAB 14:37
PROVIDERS: PCP Student in an Organized Health Care Education/Training Program; Referring Provider Physician Assistant; Visit Provider Physician Assistant
DX: L30.8 Other specified dermatitis (principal)
CPT/HCPCS: 36415; 82085; 82550; 86225

== ENCOUNTER → 2024-12-02 | Outpatient (CLI) | payer MEDICARE, SELFPAY ==
--- NOTE | 2024-12-02 12:36 | RAD_ITS ---
PROCEDURE: HIPS B/L MIN 2 VIEWS W/ PELVIS 12/02/2024 REASON FOR EXAM: INFLAMMATORY POLYARTHROPATHY TECHNIQUE: HIPS B/L MIN 2 VIEWS W/ PELVIS Laterality: Bilateral COMPARISON: Pelvic and right hip study dated 10/26/2018 FINDINGS: AP pelvic view was obtained as well as two views of the right hip and two views of the left hip. There is normal mineralization of the osseous structures. There are no fractures or dislocations. Surgical projected over the right pelvis and are similar when compared to the prior exam. SI joints are preserved. Pubic symphysis is unremarkable. Very mild degenerative osteoarthritic changes are noted involving the right hip. Very mild degenerative osteoarthritic changes are seen involving the left hip. RAD/Hips B/L min 2 views w/ Pelvis IMPRESSION: Very mild degenerative osteoarthritic changes involving both the right and left hips. Reading Location: [id number]
--- NOTE | 2024-12-02 12:36 | RAD_ITS ---
PROCEDURE: HIPS B/L MIN 2 VIEWS W/ PELVIS 12/02/2024 REASON FOR EXAM: INFLAMMATORY POLYARTHROPATHY TECHNIQUE: HIPS B/L MIN 2 VIEWS W/ PELVIS Laterality: Bilateral COMPARISON: Pelvic and right hip study dated 10/26/2018 FINDINGS: AP pelvic view was obtained as well as two views of the right hip and two views of the left hip. There is normal mineralization of the osseous structures. There are no fractures or dislocations. Surgical projected over the right pelvis and are similar when compared to the prior exam. SI joints are preserved. Pubic symphysis is unremarkable. Very mild degenerative osteoarthritic changes are noted involving the right hip. Very mild degenerative osteoarthritic changes are seen involving the left hip. RAD/Hips B/L min 2 views w/ Pelvis IMPRESSION: Very mild degenerative osteoarthritic changes involving both the right and left hips. Reading Location: [id number]
[2024-12-02 13:37] LABS: EXAGEN MAILED SPECIMEN
[2024-12-02 15:21] LABS: Hematocrit 38.2 % (37-47); Hemoglobin 12.9 g/dL (12.0-15.0); Immature Granulocytes Count 0.010 X10^3/uL (0.0-0.0); Mean Corp Hgb Conc 33.8 g/dL (32-36); Mean Corpuscular Volume 91.6 fL (81-99); Mean Platelet Vol. 10.3 fl (6.2-12.0); NRBC Flagged by Analyzer 0 % (0-5); Platelet Count 189 K/mm3 (150-450); RBC Distribution Width CV 13.0 % (11.6-14.6); RBC Distribution Width SD 43.7 fl (35.1-43.9); Red Blood Count 4.17 M/mm3 (4.2-5.4); White Blood Count 5.3 K/mm3 (4.4-11.0)
[2024-12-02 16:02] LABS: Creatinine, Urine (random) 29.10 mg/dL (28.00-217.00); Protein, Urine (Random) < 6.0 mg/dL (0.0-12.0); Protein:Creat Ratio UNABLE TO CALCULATE mg/g CRE (0-200)
[2024-12-02 16:41] LABS: Color, Urine Straw (Yellow); Glucose, Dipstick Normal (Normal); Ketone-Dipstick Negative (Negative); Leukocyte Esterase-Dipstick Negative /ul (Negative); Nitrite-Dipstick Negative (Negative); Occult Blood-Urine Negative /ul (Negative); Protein-Dipstick Negative (Negative); Specific Gravity, Urine 1.010 (1.002-1.030); Urine Bilirubin Dipstick Negative (Negative)
[2024-12-02 16:45] LABS: AST(SGOT) 25 U/L (<=31); Alanine Aminotransfer ALT/SGPT 20 U/L (<=34); Albumin, Serum 4.5 g/dL (3.4-4.8); Alkaline Phosphatase 86 U/L (35-104); Anion Gap 12 (5-15); BUN 18 mg/dL (4-19); BUN/Creat Ratio 26.0 RATIO (10-20); Calcium,Total 9.4 mg/dL (7.6-11.0); Carbon Dioxide 21.9 mmol/L (21.0-32.0); Chloride 105 mmol/L (98-108); Globulin 1.9 g/dL (2.2-4.2); Glucose 102 mg/dL (70-99); Hepatitis B Surface Antigen Nonreactive (Nonreactive); Hepatitis C Antibody Nonreactive (Nonreactive); Potassium 4.0 mmol/L (3.3-5.1)
[2024-12-06 12:09] LABS: Dilute Russell Viper Venom 48.0 sec (0.0-47.0); Dilute Russell Viper Venom Mix 41.2 sec (0.0-40.4); Interpretation Comment: (.); PTT-LA 43.2 sec (0.0-43.5)
== END | disposition home or self-care (01) ==
LOC: MTLAB 12:34
PROVIDERS: PCP Student in an Organized Health Care Education/Training Program; Referring Provider Internal Medicine Rheumatology; Visit Provider Internal Medicine Rheumatology
DX: R76.8 Other specified abnormal immunological findings in serum (principal); M06.4 Inflammatory polyarthropathy; M79.7 Fibromyalgia
CPT/HCPCS: 36415; 73521; 80053; 81002; 82570; 84156; 85025; 86706; 86803; 87340

== ENCOUNTER 2024-12-09 10:14 | Emergency (ER) | payer MEDICARE, SELFPAY ==
[2024-12-09 10:16] VITALS: BP 167/90; PULSE 65; RESP 16; TEMP 36.6; O2SAT 100; BMI 23.8
--- NOTE | 2024-12-09 10:58 | EX.ED.DYSGE1 ---
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 Patient states this was her typical seizure episode however her principal witnessed it and recommend she come to the ER to be evaluated not drive. Patient states when she gets these episodes she feels that she is sucking down and gets very weak. She does not completely lose consciousness. She reportedly does not have any abnormal body movements or shaking. No report of any urinary incontinence or postictal period. She states afterward she feels fine again. She states she has these episodes about every 6 weeks. And will have a couple over the course of the day or 2. States she had another episode this morning around 530 while walking. Her neurologist, Dr. Yossi Schmidt at [place] has recommended she has been started on antiseizure medicine but patient refuses. She states she does not want to take any medications. She notes that she had an MRI this summer that was normal. She has no acute complaints at this time and reiterates that she is only here because her principal recommended she come it. Chart review of clinic things shows the patient had MRI on 11/08/2024 with and without contrast that was unremarkable with no acute findings. Patient states that she had an EEG about 2 peña ago does not recall the results. [facility] Medical History Thyroid nodule Pacemaker Hemorrhoids Cyst Papillary fibroelastoma Psoriasis Hyperlipemia Osteopenia Lymphadenopathy Aortic stenosis Atypical nevus Syncope Aortic valve disease Appendicitis Home Medications ?Medication ?Instructions ?Recorded ?Last Taken ?Type calcium 600 mg (as 1 tab PO BID 12/09/24 Unknown History carbonate)-vitamin D3 10 mcg (400 unit) tablet Allergy/AdvReac Type Severity Reaction Status Date / Time No Known Allergies Allergy Verified 12/09/24 10:16 Family History Grandmother Paget's disease Heart disease Surgical History Hx of appendectomy Hx of aortic valve repair Status post cardiac pacemaker procedure Social History household members: spouse current occupational status: employed and retired Smoking Status: Never smoker second hand exposure: No alcohol intake: never substance use type: does not use caffeine: No what type of physical activity do you participate in: walking and running frequency: 5-6 times per week seatbelt use: always do you feel safe at home: Yes additional social history: ROS ROS ED Constitutional Constitutional ED: Reports other Details: Reports recent hair loss?being worked up with rheumatology ; Denies chills or fever(s) Eyes Eyes: Denies blurry vision or change in vision Gastrointestinal Gastrointestinal: Reports other Details: Ongoing right lower quadrant abdominal pain/groin pain?being worked up outpatient Musculoskeletal Musculoskeletal: Denies arthralgias or myalgias Neurologic Neurologic: Reports other Details: Episode of decreased responsiveness?consistent with patient's reported history of seizure ; Denies paresthesias or weakness EXAM Physical Exam Const Vital Signs: 12/09/24 10:16 Temperature 97.9 F Temperature Source Temporal Pulse Rate 65 Respiratory Rate 16 Blood Pressure 167/90 H Blood Pressure Mean 115 Pulse Ox 100 Oxygen Delivery Method Room Air Positive well nourished and well developed General Appearance ED: well developed and NAD HEENT Reports moist mucous membranes Eyes PERRL and EOMs intact bilaterally Eyes Narrative: No nystagmus Neck supple Neck Narrative: No meningeal sign Chest Wall inspection of chest normal and palpation of chest normal Resp normal respiratory effort and clear to auscultation bilaterally Cardio regular rate and regular rhythm GI normal to inspection, nondistended, normoactive bowel sounds and non-tender Extremity normal to inspection General Extremety ED: Negative for edema or tenderness General Extremity: Negative for edema Neuro oriented x3, CN's II-XII intact bilaterally and no sensory deficits noted Neuro Narrative: Normal coordination, normal speech Sensorium / Orientation: alert Motor Exam: strength 5/5 throughout; Negative for general weakness Psych mental status grossly normal Skin no wounds MDM MDM MDM Narrative Medical decision making narrative: Patient evaluated for episode of breakthrough seizure activity. Has a history of cyclic clusters of seizures. This is no different than her baseline. Has previously refused antiepileptics. Had lab work a week ago which was grossly normal. This was reviewed. Differential includes breakthrough seizure, near syncopal episode, electrolyte derangements. She is not demonstrating seizure activity right now and at her baseline so low suspicion for status epilepticus. Case was discussed with patient's neurologist, Dr. Yossi Schmidt. He confirms that she has had EEG confirming focal partial seizures. He is recommended antiepileptics but patient has refused. He has no other interventions to offer at this time. Does not think she needs a further admission or workup. Patient's lab results reviewed from 12/02/2024 which show a normal CBC and normal nonfasting BMP. Sodium was normal as low suspicion for symptomatic hyponatremia. She will continue follow-up from a rheumatologic standpoint outpatient. She continues to not want any antiepileptic treatments. Discussed that she will need continued seizure precautions and that ultimately it is her decision whether she seeks treatment or deals with the consequences of not taking medication and continue to have the seizures Discharge Plan Triage Chief Complaint: Seizure ED Provider: Anupama Carcamo Dx/Rx/DC Orders Clinical Impression: Seizure-like activity, History of epilepsy Instructions: ED Seizure, Recurrent (Adult) Prescriptions: No Action calcium carbonate-vitamin D3 600 mg-10 mcg (400 unit) tablet 1 tab PO BID Primary Care Provider: Frantz Hernández Referrals: Frantz Hernández DO [Primary Care Provider] - Activity Restrictions/Additional Instructions: Continue to follow-up outpatient. Maintain seizure precautions such as no driving or swimming/bathing without anyone around you as we do not want you to have a car accidents injure self or others or drowns. I was able to speak to Dr. Schmidt who did reiterate his recommendation of starting antiepileptics but ultimately this is your decision. Should you change your mind about trialing medication please do not hesitate to call his office for follow-up. Otherwise no acute interventions are needed at this time. Per your comfort it is safe for you to return to work especially once this cluster of episodes ends. Print Language: Tamazight Disposition Disposition: Home, Self Care
[2024-12-09 11:37] VITALS: BP 135/71; PULSE 61; RESP 14; TEMP 36.6; O2SAT 100
== END 2024-12-09 11:37 | disposition home or self-care (01) ==
LOC: ED 11:23
PROVIDERS: Emergency Provider Emergency Medicine; PCP Student in an Organized Health Care Education/Training Program; Visit Provider Emergency Medicine
DX: G40.A09 Absence epileptic syndrome, not intractable, without status epilepticus (principal)
CPT/HCPCS: 99282

== ENCOUNTER → 2025-03-12 | Outpatient (CLI) | payer MEDICARE, SELFPAY ==
[2025-03-12 15:16] LABS: Hematocrit 42.7 % (37-47); Hemoglobin 14.2 g/dL (12.0-15.0); Immature Granulocytes Count 0.010 X10^3/uL (0.0-0.0); Mean Corp Hgb Conc 33.3 g/dL (32-36); Mean Corpuscular Volume 92.2 fL (81-99); Mean Platelet Vol. 10.4 fl (6.2-12.0); NRBC Flagged by Analyzer 0 % (0-5); Platelet Count 220 K/mm3 (150-450); RBC Distribution Width CV 12.6 % (11.6-14.6); RBC Distribution Width SD 42.8 fl (35.1-43.9); Red Blood Count 4.63 M/mm3 (4.2-5.4); White Blood Count 5.5 K/mm3 (4.4-11.0)
[2025-03-12 15:40] LABS: AST(SGOT) 24 U/L (<=31); Alanine Aminotransfer ALT/SGPT 19 U/L (<=34); Albumin, Serum 4.6 g/dL (3.4-4.8); Alkaline Phosphatase 84 U/L (35-104); Anion Gap 11 (5-15); BUN 23 mg/dL (4-19); BUN/Creat Ratio 33.1 RATIO (10-20); Calcium,Total 9.5 mg/dL (7.6-11.0); Carbon Dioxide 24.5 mmol/L (21.0-32.0); Chloride 104 mmol/L (98-108); Globulin 2.7 g/dL (2.2-4.2); Glucose 101 mg/dL (70-99); Potassium 4.5 mmol/L (3.3-5.1)
== END | disposition home or self-care (01) ==
LOC: MTLAB 11:43
PROVIDERS: PCP Student in an Organized Health Care Education/Training Program; Referring Provider Internal Medicine Rheumatology; Visit Provider Internal Medicine Rheumatology
DX: M06.4 Inflammatory polyarthropathy (principal); R76.81 Abnormal rheumatoid factor and anti-citrullinated protein antibody without rheumatoid arthritis; M79.7 Fibromyalgia; L64.9 Androgenic alopecia, unspecified
CPT/HCPCS: 36415; 80053; 85025

== ENCOUNTER → 2025-03-24 | Outpatient (CLI) | payer MEDICARE, SELFPAY ==
--- NOTE | 2025-03-24 09:31 | BI_ITS ---
EXAM: DIAG MAMM W/CAD, UNILAT 03/24/2025 CLINICAL HISTORY: F, Age 70 y/o , PAIN. Patient has been having left breast pain for 1 and half years. Most of the pain is on the lateral side but she has generalized pain throughout the breast. Evaluate. There are no palpable abnormalities. No nipple inversion. No nipple discharge. No known trauma. TECHNIQUE: Procedure Code: [id number] Modality: MG Procedure: DIAG MAMM W/CAD, UNILAT. COMPARISON: Prior exam(s) dated 10/08/2024 and 02/03/2023. FINDINGS: TISSUE DENSITY: The breasts are heterogeneously dense, which may obscure small masses. Bilateral Breast Mammographic Findings: There are no suspicious masses, suspicious cluster of microcalcifications, architectural distortion or secondary signs of malignancy in the left breast. There is no mammographic abnormality to correlate to her breast pain. Further workup with ultrasound will be performed for further evaluation. BI/DIAG MAMM W/CAD, UNILAT IMPRESSION: There is no mammographic abnormality to correlate to her breast pain. Further w orkup with ultrasound will be performed for further evaluation. OVERALL FINAL ASSESSMENT BI-RADS 0: INCOMPLETE - NEED ADDITIONAL IMAGING EVALUATION. RECOMMENDATION: Ultrasound Recommended Additional Recommendation none A letter with findings and recommendations will be mailed to the patient. Reading Location: [id number]
--- NOTE | 2025-03-24 09:31 | US_ITS ---
PROCEDURE: BREAST LIMITED UNILATERAL 03/24/2025 REASON FOR EXAM: F, Age 70 y/o , PAIN pain in the left breast for 1-1/2 years. Pain is more focal laterally however she has diffuse pain throughout. Inconclusive mammogram. Evaluate. COMPARISON: Mammogram studies dated 03/24/2025 and 10/08/2024. TECHNIQUE: Procedure Code: USBRSTLIMIT Modality: US Procedure: BREAST LIMITED UNILATERAL FINDINGS: There is no ultrasound abnormality in the left breast to correlate to the breasts pain. The areas of breast pain appear to represent normal breast tissue. The entire left breast was scanned. There are no suspicious solid or cystic masses seen. US/Breast Limited Unilateral IMPRESSION: There is no ultrasound abnormality in the left breast to correlate to the breas ts pain. The areas of breast pain appear to represent normal breast tissue. The entire left breast was scanned. There are no suspicious solid or cystic masses seen. The patient should return in September 2025 for routine yearly screening mammography . BI-RADS 1: NEGATIVE RECOMMENDATION: Routine annual follow-up in 1 Year Reading Location: [id number]
== END | disposition home or self-care (01) ==
PROVIDERS: PCP Student in an Organized Health Care Education/Training Program; Referring Provider Student in an Organized Health Care Education/Training Program; Visit Provider Student in an Organized Health Care Education/Training Program
DX: N64.4 Mastodynia (principal)
CPT/HCPCS: 76642; 77061; 77065; G0279